=== PATIENT | male | born 2000 | race Caucasian/White ===

== ENCOUNTER 2020-08-10 12:41 | Emergency (ER) | payer OTHER, SELFPAY ==
[2020-08-10 12:55] VITALS: BP 135/85; PULSE 68; RESP 16; TEMP 37.3; O2SAT 100
--- NOTE | 2020-08-10 13:01 | ED.URI ---
HPI - URI/Sore Throat General Chief Complaint: Upper Respiratory Infection Stated Complaint: sore throat Time Seen by Provider: 08/10/20 13:01 Source: patient and RN notes reviewed Mode of arrival: ambulatory Limitations: no limitations History of Present Illness HPI Narrative: 20-year-old male presents with concern for nasal congestion, rhinorrhea, body aches, fever, sore throat, headache. Denies cough, shortness of breath, loss of sense of taste or smell, nausea, vomiting, diarrhea. Reports symptoms started on Sunday, he had a rapid Covid test on Sunday which was negative. He reports he is taking Tylenol for fever, denies any other interventions. He denies any known sick contacts. MD elicited complaint: nasal congestion Related Data Home Medications Medication Instructions Recorded Confirmed No Home Medications 06/24/19 06/24/19 Allergies Allergy/AdvReac Type Severity Reaction Status Date / Time No Known Allergies Allergy Mild Verified 06/24/19 02:07 Review of Systems Review of Systems: Narrative: CONSTITUTIONAL: Reports malaise, fever. Denies chills, sweats. EYES: Denies visual changes, redness, or discharge. ENT: Reports rhinorrhea, congestion, sore throat. Denies sinus pain, otalgia. CARDIOVASCULAR: Denies chest pain, palpitations, or edema. RESPIRATORY: Denies cough or dyspnea. GASTROINTESTINAL: Denies abdominal pain, nausea, vomiting, diarrhea SKIN: Denies rash or itching. MUSCULOSKELETAL: Reports myalgia. NEUROLOGIC: Reports headache. All systems reviewed & are unremarkable except as noted in HPI and below PMFSH Past Medical History Medical History (Updated 08/10/20 @ 13:10 by Noreen Otero NP) Kidney stone Surgical History Surgical History (Updated 06/24/19 @ 04:03 by Mar Gutierres) No significant past surgical history Social History Social History (Updated 06/24/19 @ 04:03 by Mar Gutierres) Smoking status: Never smoker Alcohol intake: current Substance use: never Gender identity (if verbalized by the patient): Male Comments At time of signature, agree with nursing past medical, surgical, social and family history. There is no relevant family history pertinent to the presenting complaint Exam Narrative: Exam Narrative: GENERAL: Well-appearing, well-nourished, and in no acute distress. HEAD: Normocephalic EYES: PERRLA, conjunctivae clear ENT: Nares clear, turbinates edematous and erythematous, clear discharge. Mucous membranes moist. TM pearly armando with sharp light reflex bilaterally; no tragal tenderness. Oropharynx erythematous without lesions. Tonsils mildly enlarged and without exudate, no drooling, no hoarseness, no trismus, uvula midline. NECK: Supple. No lymphadenopathy CHEST: Clear to auscultation, breath sounds equal. No wheezing, rhonchi, rales, or stridor. No respiratory distress, speaks in full sentences. HEART: Regular rate and rhythm. No murmur heard. SKIN: Warm, dry, no rash. NEURO: Alert and oriented x3. PSYCH: Normal mood and affect Course Course Emergency Course: Patient is aware of diagnosis, understands and agrees to treatment plan. Anticipatory guidance given. Patient agrees to follow-up as directed and is aware of reasons to seek care at the emergency department. Portions of this record may have been created with voice recognition software Vital Signs Vital signs: Vital Signs Temperature 99.2 F 08/10/20 12:55 Pulse Rate 68 08/10/20 12:55 Respiratory Rate 16 08/10/20 12:55 Blood Pressure 135/85 08/10/20 12:55 Pulse Oximetry 100 08/10/20 12:55 Temperature 99.2 F 08/10/20 12:55 Pulse Rate 68 08/10/20 12:55 Respiratory Rate 16 08/10/20 12:55 Blood Pressure 135/85 08/10/20 12:55 Pulse Oximetry 100 08/10/20 12:55 Reviewed. Pt has been instructed to follow up with his primary care provider within the next week regarding his elevated blood pressure today. MDM - URI/Sore Throat MDM Narrative Medical decision making
[2020-08-11 13:13] LABS: SARS-CoV-2 RNA PCR Negative
== END 2020-08-10 13:22 | disposition home or self-care (01) ==
PROVIDERS: Emergency Provider Nurse Practitioner
DX: J06.9 Acute upper respiratory infection, unspecified (principal); Z20.822 Contact with and (suspected) exposure to COVID-19
CPT/HCPCS: 87081; 87426; 87804; 87880; 99213; C9803; G0463; U0003; U0005

== ENCOUNTER 2022-09-07 16:01 | Emergency (ER) | payer OTHER, SELFPAY ==
--- NOTE | ~2022-09-07 | XR_ITS ---
EXAMINATION: XR chest 2V 09/07/2022 17:06 INDICATION: Left-sided chest pain PROCEDURE: 2 view chest COMPARISON: No prior studies for comparison. FINDINGS: The lungs are clear. The cardiomediastinal silhouette is within normal limits. There are no pleural effusions. There is no pneumothorax suspected. IMPRESSION: 1: NO ACUTE CARDIOPULMONARY DISEASE. Reviewed, dictated and finalized at location A.
--- NOTE | 2022-09-07 16:14 | ECG_ITS ---
Measurements Intervals [place] Rate: 65 P: 41 [place]: 141 QRS: 91 QRSD: 88 T: 51 QT: 376 QTc: 393 Interpretive Statements SINUS RHYTHM RIGHT AXIS DEVIATION BASELINE ARTIFACT- I, II, AVR, AVL, AVF, V1 BORDERLINE ECG COMPARED TO ECG 06/24/2019 02:00:53 NO SIGNIFICANT CHANGES Electronically Signed On 09-07-2022 16:16:47 CDT by Walt Pereira D.O.
[2022-09-07 16:36] VITALS: BP 152/74; PULSE 72; RESP 15; TEMP 37.1; O2SAT 100
[2022-09-07 17:02] LABS: Basophils Percent Auto 0.6 % (0.2-1.2); Eosinophils Absolute Auto 0.1 K/mm3 (0-0.3); Eosinophils Percent Auto 2.1 % (0-4.4); Hematocrit 42.4 % (42.0-52.0); Hemoglobin 14.1 g/dL (14.0-18.0); Immature Granulocyte Absolute 0.01 K/mm3 (0.00-0.031); Immature Granulocyte Percent A 0.2 % (0-0.5); Lymphocytes Percent Auto 37.3 % (18.3-44.2); Mean Corpuscular HGB Conc 33.3 g/dl (32-36); Mean Corpuscular Volume 93.2 fl (80-100); Mean Platelet Volume 10.5 fl (7.4-10.4); Monocytes Absolute Auto 0.8 K/mm3 (0.1-0.6); Monocytes Percent Auto 14.2 % (2.6-8.5); Neutrophils Absolute Auto 2.5 K/mm3 (1.3-6.7); Neutrophils Percent Auto 45.6 % (45.5-73.1); Platelet Count Result 209 k/mm3 (150-375); Red Blood Count 4.55 M/mm3 (4.6-6.20); Red Cell Distribution Width 12.1 % (11.5-14.5); White Blood Count 5.4 K/mm3 (4.5-10.0)
[2022-09-07 17:12] LABS: Alanine Aminotransferase 21 U/L (6-50); Albumin Level 4.9 g/dL (3.5-5.1); Alkaline Phosphatase 172 U/L (38-126); Anion Gap 7 mmol/L (8-16); Aspartate Amino Transferase 36 U/L (17-59); Bilirubin,Total 0.5 mg/dL (0.2-1.3); Blood Urea Nitrogen 25 mg/dL (9-20); Carbon Dioxide 31 mmol/L (22-30); Chloride 102 mmol/L (98-107); Estimated CRCL calculation 106 ml/min; Estimated Glomerular Filt Rate > 60; Glucose 102 mg/dL (65-110); Lipase 133 U/L (23-300); Potassium 4.3 mmol/L (3.4-5.0); Sodium 140 mmol/L (137-145)
[2022-09-07 17:16] LABS: Prothrombin Time 13.2 Seconds (11.1-14.7)
[2022-09-07 17:17] LABS: Partial Thromboplastin Time 29.1 SECONDS (22.3-36.8)
[2022-09-07 17:23] LABS: Troponin I < 0.012 ng/mL (0.000-0.034)
[2022-09-07 19:48] LABS: Troponin I < 0.012 ng/mL (0.000-0.034)
[2022-09-07 19:49] VITALS: BP 127/75; PULSE 58; RESP 18; O2SAT 100
--- NOTE | 2022-09-07 20:45 | ED.GENADULT ---
HPI - General Adult General Chief complaint: Chest Pain Stated complaint: chest pain Time Seen by Provider: 09/07/22 20:24 History of Present Illness HPI narrative: This is a 22-year-old male presenting ED with a chief complaint of chest pain. Patient was working from home at 9:30 a.m. when he started to have a squeezing sensation the center of his chest. It is nonradiating, 9/10 in intensity. It was sudden in onset and lasted approximately 45 seconds before resolving on its own. He has had 4 episodes today. he has never experienced pain like this before. There are no exacerbating factors and is improved with drinking water. He denies nausea, vomiting, diaphoresis, exertional component, fever chills shortness of breath or abdominal pain. Related Data Home Medications Medication Instructions Recorded Confirmed No Home Medications 06/24/19 06/24/19 Allergies Allergy/AdvReac Type Severity Reaction Status Date / Time No Known Allergies Allergy Mild Verified 09/07/22 20:23 [facility] Past Medical History Medical History Kidney stone Surgical History Surgical History No significant past surgical history Social History Social History Smoking status: Never smoker Alcohol intake: current Substance use: never Gender identity (if verbalized by the patient): Male Exam Narrative: APPEARANCE: No apparent distress. Well-appearing Head: atraumatic. EYES: EOMI, NOSE: Atraumatic NECK: Trachea midline RESPIRATORY: No increased rate of breathing clear to auscultation CARDIOVASCULAR: RRR, no peripheral edema ABDOMINAL: Non-distended, soft no guarding rebound MUSCULOSKELETAl: No obvious deformities NEURO: Alert. Moving 4/4 extremities SKIN:: Warm, dry. Normal color PSYCHIATRIC: Normal affect Course Vital Signs Vital signs: Vital Signs Temperature 98.8 F 09/07/22 16:36 Pulse Rate 72 09/07/22 16:36 Respiratory Rate 15 09/07/22 16:36 Blood Pressure 152/74 H 09/07/22 16:36 Pulse Oximetry 100 09/07/22 16:36 Oxygen Delivery Room Air 09/07/22 16:36 Temperature 98.8 F 09/07/22 16:36 Pulse Rate 58 L 09/07/22 19:49 Respiratory Rate 18 09/07/22 19:49 Blood Pressure 127/75 09/07/22 19:49 Pulse Oximetry 100 09/07/22 19:49 Oxygen Delivery Room Air 09/07/22 16:36 Medical Decision Making MDM Narrative Medical decision making narrative: -Presentation: 22-year-old presenting with short episodes of intermittent chest pain throughout the day. -DDX includes but is not limited to: ACS, pericarditis, chest wall pain, anxiety, pneumothorax -Co-morbidities complicating care: supplement use -Social determinants of health: patient works as a civil engineering project designer. He lives alone. -External Chart Review: None -Hx from independent Sources: mother at bedside -Discussion of Management/Consultants: none -Independent interpretation of studies: CBC was normal. Metabolic panel was normal. Troponins were negative x2. chest x-ray showed no acute cardiopulmonary process. Independent EKG interpretation: Rhythm [sinus], Rate [65], [place] -[rightward], [place] -[normal], QRS [narrow], QTC [normal], T waves -[negative for concerning inversions], ST Segments - [Negative for concerning elevations] Final interpretations: [Normal Sinus Rhythm] Dx tests considered but not ordered: PE studies - perc negative -Procedures: none -Interventions: none -Shared decision making / Disposition: Patient's EKGs and labs are reviewed without significant high risk changes. Cardiac risk factors reviewed. Heart score is <4 and it is reasonable for further risk stratification to be performed as outpatient. Pain was not sudden or maximal onset not tearing or ripping quality. No other signs or symptoms suggest aortic dissection. perc neg
[2022-09-07 21:16] VITALS: BP 118/73; PULSE 62; RESP 17; O2SAT 99
== END 2022-09-07 21:17 | disposition home or self-care (01) ==
PROVIDERS: Emergency Medicine; Emergency Provider Emergency Medicine
DX: R07.89 Other chest pain (principal); Z87.442 Personal history of urinary calculi; R94.31 Abnormal electrocardiogram [ECG] [EKG]
CPT/HCPCS: 36415; 71046; 80053; 83690; 84484; 85025; 85610; 85730; 93005; 99284